=== PATIENT | female | born 1995 | race Caucasian/White ===

== ENCOUNTER 2017-08-23 11:29 | Emergency (ER) | payer BC ==
[2017-08-23 11:57] VITALS: BP 126/78
--- NOTE | 2017-08-23 12:19 | UC ---
Back Pain HPI - HPI Summary HPI Summary: Fall while playing lacrosse on 08/19/17, with ongoing pain radiating to the sacral area. Has improved, here because her program trainer advised assessment. Pain with stool passage, but now not awakening in the night with pain. No radiation to legs, no fecal or urinary incontinence. Forcefull fall, felt winded, could not play the rest of the game and has been sitting out of practice. - History of Current Complaint Chief Complaint: UCBackPain Stated Complaint: TAILBONE INJURY Time Seen by Provider: 08/23/17 12:01 Hx Obtained From: Patient Hx Last Menstrual Period: 08/09/17 Onset/Duration: Sudden Onset, Lasting Days - 4 Timing: Constant Severity Currently: Moderate Pain Intensity: 6 Back Pain: Radiates To - sacral and lumbar area. Character: Aching, Stiffness Aggravating Factor(s): Movement, Bending Alleviating Factor(s): Rest, Position Associated Signs And Symptoms: Positive: Negative - Allergies/Home Medications Allergies/Adverse Reactions: Allergies Allergy/AdvReac Type Severity Reaction Status Date / Time Sulfa (Sulfonamide Allergy Rash And Verified 08/23/17 11:55 Antibiotics) Itching Home Medications: Home Medications NK [No Home Medications Reported] 08/23/17 [History Confirmed 08/23/17] PMH/Surg Hx/FS Hx/Imm Hx Previously Healthy: Yes - Surgical History Surgical History: None - Family History Known Family History: Positive: Unknown - Social History Occupation: Student Lives: Dormitory/Roommates Alcohol Use: None Substance Use Type: None Smoking Status (MU): Never Smoked Tobacco Have You Smoked in the Last Year: No Review of Systems Constitutional: Negative Skin: Negative Eyes: Negative ENT: Negative Respiratory: Negative Cardiovascular: Negative Gastrointestinal: Negative Genitourinary: Negative Motor: Negative Neurovascular: Negative Musculoskeletal: Arthralgia Neurological: Negative Psychological: Negative Is Patient Immunocompromised?: No All Other Systems Reviewed And Are Negative: Yes Physical Exam Triage Information Reviewed: Yes Appearance: Well-Appearing, Pain Distress - mild, comfortably seated. Vital Signs: Initial Vital Signs Temp 98.6 F 08/23/17 11:52 Pulse 62 08/23/17 11:52 Resp 16 08/23/17 11:52 BP 126/78 08/23/17 11:52 Pulse Ox 99 08/23/17 11:52 Vital Signs Reviewed: Yes ENT: Positive: Normal ENT inspection Neck: Positive: Supple, Nontender Respiratory: Positive: Lungs clear Cardiovascular: Positive: RRR Abdomen Description: Positive: Nontender, No Organomegaly, Soft Musculoskeletal Exam: Other - tenderness in coccygeal area, but no bruising visible. Musculoskeletal: Positive: ROM Limited @ - lumbar spine with mild stiffness, can flex to 90 degrees. ROM in hips is normal but causes pain Neurological Exam: Normal Psychological Exam: Normal Skin Exam: Normal Back Pain Course/Dx - Course Course Of Treatment: regular ibuprofen, ice. - Differential Dx/Diagnosis Differential Diagnosis/HQI/PQRI: Strain, Sprain, Other - contusion. Provider Diagnoses: tailbone contusion Discharge - Discharge Plan Condition: Stable Disposition: HOME Patient Education Materials: Contusion in Adults (ED) Referrals: Martin Hutchins MD [Primary Care Provider] - Additional Instructions: As reviewed, the clinical course and exam suggest a contusion of the tailbone. Although these can be sore for weeks, you are improving on a good timetable. You would benefit from using ice, and regular ibuprofen 600 to 800 mg two or 3 times per day for the next 4 or 5 days. There is no indication for imaging at this time, and you can return to play as yor pain improves.
== END 2017-08-23 12:33 | disposition home or self-care (01) ==
LOC: UCCORT 11:29
DX: S30.0XXA Contusion of lower back and pelvis, initial encounter (principal); W19.XXXA Unspecified fall, initial encounter; Y93.65 Activity, lacrosse and field hockey; Y92.9 Unspecified place or not applicable; Z88.2 Allergy status to sulfonamides
CPT/HCPCS: 99211; G0463

== ENCOUNTER 2017-11-21 14:52 | Emergency (ER) | payer BC ==
[2017-11-21 16:17] VITALS: BP 135/77
--- NOTE | 2017-11-21 16:42 | UC ---
Complaint Female HPI - HPI Summary HPI Summary: Pt c/o thick white vaginal discharge. c/o occasional discomfort with urination and vaginal discomfort and "itchiness". - History Of Current Complaint Chief Complaint: UCGU Stated Complaint: PERSONAL Time Seen by Provider: 11/21/17 16:20 Hx Obtained From: Patient Hx Last Menstrual Period: 11/01/17 ?: No Onset/Duration: Gradual Onset, Lasting Days, Still Present Timing: Constant Severity Initially: Mild Severity Currently: Mild Pain Intensity: 0 Character: Burning Aggravating Factor(s): Urination Alleviating Factor(s): Nothing Associated Signs And Symptoms: Positive: Vaginal Discharge - Risk Factors Ectopic Risk Factor: Negative Ovarian Torsion Risk Factor: Reproductive Age - Allergies/Home Medications Allergies/Adverse Reactions: Allergies Allergy/AdvReac Type Severity Reaction Status Date / Time Sulfa (Sulfonamide Allergy Rash And Verified 11/21/17 16:10 Antibiotics) Itching PMH/Surg Hx/FS Hx/Imm Hx Previously Healthy: Yes - Surgical History Surgical History: None - Family History Known Family History: Positive: Cardiac Disease - Social History Occupation: Employed Full-time Lives: With Family Alcohol Use: Occasionally Substance Use Type: None Smoking Status (MU): Never Smoked Tobacco Have You Smoked in the Last Year: No Review of Systems Constitutional: Negative Skin: Negative Eyes: Negative ENT: Negative Respiratory: Negative Cardiovascular: Negative Gastrointestinal: Negative Genitourinary: Vaginal/Penile Burning, Vaginal/Penile Itching, Vaginal/Penile Discharge Motor: Negative Neurovascular: Negative Musculoskeletal: Negative Neurological: Negative Psychological: Negative Is Patient Immunocompromised?: No All Other Systems Reviewed And Are Negative: Yes Physical Exam Triage Information Reviewed: Yes Appearance: Well-Appearing Vital Signs: Initial Vital Signs Temp 98.8 F 11/21/17 16:11 Pulse 93 11/21/17 16:11 Resp 20 11/21/17 16:11 BP 135/77 11/21/17 16:11 Pulse Ox 100 11/21/17 16:11 Vital Signs Reviewed: Yes Eye Exam: Normal ENT: Positive: Hearing grossly normal Dental Exam: Normal Neck: Positive: Supple Respiratory: Positive: No respiratory distress Musculoskeletal Exam: Normal Neurological Exam: Normal Psychological Exam: Normal Skin Exam: Normal Complaint Female Dx - Differential Dx/Diagnosis Differential Diagnosis/HQI/PQRI: Urinary Tract Infection Provider Diagnoses: vaginitis Discharge - Sign-Out/Discharge Documenting (check all that apply): Discharge/Admit/Transfer - Discharge Plan Condition: Stable Disposition: HOME Prescriptions: Fluconazole 100 MG TAB* [Diflucan 100 MG TAB*] 100 mg PO DAILY #3 tab Patient Education Materials: Vaginitis (ED) Referrals: Martin Hutchins MD [Primary Care Provider] - If Needed - Billing Disposition and Condition Condition: STABLE Disposition: Home
== END 2017-11-21 16:59 | disposition home or self-care (01) ==
LOC: UCCORT 14:52
DX: B37.3 Candidiasis of vulva and vagina (principal); Z88.2 Allergy status to sulfonamides
CPT/HCPCS: 81003; 87480; 87491; 87510; 87591; 87660; 99212; G0463